=== PATIENT | male | born 1935 | race Asian ===

== ENCOUNTER → 2025-03-29 10:37 | Outpatient (CLI) | payer MEDICARE, OTHER, SELFPAY ==
[2025-03-29 11:54] LABS: Prostate Specific Antigen 5.04 ng/mL (0.10-4.00)
== END ==
PROVIDERS: PCP Physician Assistant; Referring Provider Physician Assistant; Visit Provider Urology
DX: R97.20 Elevated prostate specific antigen [PSA] (principal)
CPT/HCPCS: 36415; 84153